=== PATIENT | female | born 1955 | race Caucasian/White ===

== ENCOUNTER 2017-08-17 11:22 | Emergency (ER) | payer BC ==
--- NOTE | 2017-08-17 11:25 | ER Report ---
History and Physical Time Seen By MD: 11:25 Hx. of Stated Complaint: wants a skin biopsy HPI/ROS h/o melanoma left chest wall has noticed over the last 2 weeks is having redness and swelling in the middle of her previous melanoma incision I'm is here from [place] is currently on vacation through December her traveling all of the [facility] states she called for clinic appointment today was told to come to the emergency room unfortunately in the emergency room we do not do biopsies of wounds explain this to patient she was aggravated about this news I am changed her focus and wanting an IV for her dry skin states he's had some broken skin at the end of her fingers since being [place] altitude explained that this was not warranted she then decided she wanted to talk to the emergency room physician who was very nice about going to talk to the patient we will send her home with instructions to increase her oral fluid intake Remainder of the 14 system rev: Yes Allergies: Coded Allergies: tramadol (Verified Allergy, Intermediate, confusion, 08/17/17) Home Meds Active Scripts Guaifenesin (MUCINEX) 600 Mg Tablet.er, 600 MG PO BID, #10 Prov:FISH OHARA 08/17/17 Amoxicillin/Pot Clav 875-125 Mg Tab (AUGMENTIN 875-125 TABLET) 1 Each Tablet, 1 TAB PO Q12H, #14 TAB Prov:FISH OHARA 08/17/17 Reported Medications Duloxetine Hcl (CYMBALTA) 30 Mg Capsule.dr, 30 MG PO QDAY, #5 CAP 08/17/17 Biotin (Biotin) 10,000 Mcg Capsule 08/17/17 Cilostazol (CILOSTAZOL) 100 Mg Tablet, 100 MG PO 08/17/17 Clopidogrel Bisulfate (PLAVIX) 75 Mg Tablet, 1 TAB PO QDAY, TAB 08/17/17 Metoprolol Succinate (METOPROLOL SUCCINATE) 25 Mg Tab.er.24h, 1 TAB PO QDAY, TAB 08/17/17 Pantoprazole Sodium (PANTOPRAZOLE SODIUM) 20 Mg Tablet.dr, 20 MG PO QDAY, TAB.SR 08/17/17 Turmeric (TURMERIC) 1 Gm Powder, 1 GM MC 08/17/17 Pregabalin (LYRICA) 50 Mg Capsule, 50 MG PO BID, CAPSULE 08/17/17 Modafinil (MODAFINIL) 200 Mg Tablet, 200 MG PO DAILY 08/17/17 Past Medical/Surgical History melanoma left chest ,chronic pain Reviewed Nurses Notes: Yes Old Medical Records Reviewed: Yes Hx Smoking: No Exposure to Second Hand Smoke?: No Hx Substance Use Disorder: No Hx Alcohol Use: No Constitutional Vital Sign - Last 24 Hours 08/17/17 11:38 Temp 98.1 Pulse 90 Resp 16 B/P (MAP) 148/87 Pulse Ox 96 O2 Delivery Room Air Physical Exam General Appearance: [The patient is alert, has no immediate need for airway protection and no current signs of toxicity.] [ ] Eyes: Pupils equal and round no injection.sinus pain right maxillay sinus Respiratory: Chest is non tender, lungs are clear to auscultation. Cardiac: regular rate and rhythm [ ] Gastrointestinal: Abdomen is soft and non tender, no masses, bowel sounds normal. Musculoskeletal: Neck: Neck is supple and non tender. Extremities have full range of motion and are non tender. Skin: Old healed incision incision left lateral chest and noticed a red raised nodule in the middle of the incision [ ] [DIFFERENTIAL DIAGNOSIS: After history and physical exam differential diagnosis was considered for recurrent melanoma, hernia, nevus Medical Decision Making ED Course/Re-evaluation ED Course Did call Dr. Conley's office he is booked out to the the patient's x-ray traveling through this area is planning on leaving by Thursday, called the [facility] they were able to see the patient tomorrow at 3:30 a gave the patient information about the name phone number and address to the clinic let her know she needs to be there 15 minutes in advance and she would see a physician tomorrow for her biopsy. Patient adamantly wanted a liter of IV fluid while in the emergency room for her dry skin on her hands we let her know that this was not indicated after seeing me she did ask to speak with the ER physician who was kind enough to go talk to the patient as well told her to increase her oral fluid intake Re-evaluation will treat sinusitis that has been there ovre 1 month, [facility] for biopsy, no iv fluids for dry skin as this is not indicated Decision to Disposition Date: Aug 17, 2017 Decision to Disposition Time: 11:45 Depart Departure Latest Vital Signs Vital Signs Date Time Temp Pulse Resp B/P (MAP) Pulse Ox O2 Delivery O2 Flow Rate FiO2 7/2/18 11:38 98.1 90 16 148/87 96 Room Air Impression: Primary Impression: Melanoma Additional Impressions: Nodule in muscle Sinusitis Condition: Condition Unchanged Disposition: HOME OR SELF-CARE Referrals: TOLU PONCE MD New Scripts Guaifenesin (MUCINEX) 600 Mg Tablet.er 600 MG PO BID, #10 Prov: FISH OHARA 08/17/17 Amoxicillin/Pot Clav 875-125 Mg Tab (AUGMENTIN 875-125 TABLET) 1 Each Tablet 1 TAB PO Q12H, #14 TAB Prov: FISH OHARA 08/17/17 Patient Instructions: Itchy Skin (ED), Sinusitis (ED) Additional Instructions: See this [facility] as instructed tomorrow at 3 30 units been given the address and contact information for the clinic Problem Qualifiers FISH OHARA Aug 17, 2017 11:25
[2017-08-17 11:38] VITALS: BP 148/87
[2017-08-17] MEDS ORDERED: BIOT10005 (11:54)
[2017-08-17] MEDS ORDERED: PREG50CA48 PO (11:54)
[2017-08-17] MEDS ORDERED: METO25TA23 PO (11:54)
[2017-08-17] MEDS ORDERED: CILO100T25 PO (11:54)
[2017-08-17] MEDS ORDERED: CLOP75TA43 PO (11:54)
[2017-08-17] MEDS ORDERED: DULO30CA35 PO (11:54)
[2017-08-17] MEDS ORDERED: PANT20TA27 PO (11:54)
[2017-08-17] MEDS ORDERED: MODA200T6 PO (11:54)
[2017-08-17] MEDS ORDERED: TURM1POW2 MC (11:54)
[2017-08-17] MEDS ORDERED: GUAI600T57 PO (12:09)
[2017-08-17] MEDS ORDERED: AMOX-559 PO (12:09)
== END 2017-08-17 12:30 | disposition home or self-care (01) ==
LOC: ER 11:37
DX: C43.9 Malignant melanoma of skin, unspecified (principal); J32.9 Chronic sinusitis, unspecified
CPT/HCPCS: 99281

== ENCOUNTER 2017-08-22 05:18 | Emergency (ER) | payer BC ==
[~2017-08-22 05:18] MED LIST: AMOX-559 PO; BIOT10005; CILO100T25 PO; CLOP75TA43 PO; DULO30CA35 PO; GUAI600T57 PO; METO25TA23 PO; MODA200T6 PO; PANT20TA27 PO; PREG50CA48 PO; TURM1POW2 MC
--- NOTE | 2017-08-22 05:22 | ER Report ---
History and Physical Time Seen By MD: 05:22 HPI/ROS CHIEF COMPLAINT: Left abdominal wall bleeding at site of biopsy HISTORY OF PRESENT ILLNESS: Patient is a 62-year-old female here with complaints of bleeding at the site of a biopsy where she previously had a melanoma scar. Patient reports that she started bleeding overnight and placed a towel and out for a makeshift pressure dressing. Patient reportedly bled through her towel prompting evaluation. Patient is well appearing at time of evaluation, hemodynamically stable in no acute distress. REVIEW OF SYSTEMS: Constitutional: No fever, no chills. Eyes: No discharge. ENT: No sore throat. Cardiovascular: No chest pain, no palpitations. Respiratory: No cough, no shortness of breath. Gastrointestinal: No abdominal pain, no vomiting. Genitourinary: No hematuria. Musculoskeletal: No back pain. Skin: + 0.5 cm puncture biopsy site upper abdomen, lower chest Neurological: No headache. Allergies: Coded Allergies: tramadol (Verified Allergy, Intermediate, confusion, 08/17/17) Home Meds Reported Medications Duloxetine Hcl (CYMBALTA) 30 Mg Capsule.dr, 30 MG PO QDAY, #5 CAP 08/17/17 Biotin (Biotin) 10,000 Mcg Capsule 08/17/17 Cilostazol (CILOSTAZOL) 100 Mg Tablet, 100 MG PO 08/17/17 Clopidogrel Bisulfate (PLAVIX) 75 Mg Tablet, 1 TAB PO QDAY, TAB 08/17/17 Metoprolol Succinate (METOPROLOL SUCCINATE) 25 Mg Tab.er.24h, 1 TAB PO QDAY, TAB 08/17/17 Pantoprazole Sodium (PANTOPRAZOLE SODIUM) 20 Mg Tablet.dr, 20 MG PO QDAY, TAB.SR 08/17/17 Turmeric (TURMERIC) 1 Gm Powder, 1 GM MC 08/17/17 Pregabalin (LYRICA) 50 Mg Capsule, 50 MG PO BID, CAPSULE 08/17/17 Modafinil (MODAFINIL) 200 Mg Tablet, 200 MG PO DAILY 08/17/17 Discontinued Scripts Guaifenesin (MUCINEX) 600 Mg Tablet.er, 600 MG PO BID, #10 Prov:FISH OHARA [employer] 08/17/17 Amoxicillin/Pot Clav 875-125 Mg Tab (AUGMENTIN 875-125 TABLET) 1 Each Tablet, 1 TAB PO Q12H, #14 TAB Prov:FISH OHARA [employer] 08/17/17 Hx Smoking: No Exposure to Second Hand Smoke?: No Hx Substance Use Disorder: No Hx Alcohol Use: No Constitutional Vital Sign - Last 24 Hours 08/22/17 08/22/17 08/22/17 08/22/17 05:27 05:30 05:33 06:00 Temp 98.7 Pulse 76 ??? Resp 20 B/P (MAP) 132/93 132/82 (99) 115/70 (85) Pulse Ox 94 O2 Delivery Room Air Physical Exam General Appearance: The patient is alert, has no immediate need for airway protection and no signs of toxicity. NAD Eyes: Pupils equal and round no pallor or injection. ENT, Mouth: Mucous membranes are moist. Respiratory: There are no retractions, lungs are clear to auscultation. Cardiovascular: Regular rate and rhythm. Gastrointestinal: Abdomen is soft and non tender, no masses, bowel sounds normal. Neurological: No focal deficits Skin: + 0.5 cm puncture wound with active bleeding of upper abdomen Musculoskeletal: Neck is supple non tender. Extremities are nontender, nonswollen and have full range of motion. DIFFERENTIAL DIAGNOSIS: After history and physical exam differential diagnosis was considered for post biopsy bleeding, trauma, bleeding disorder Medical Decision Making ED Course/Re-evaluation ED Course Patient is a 62-year-old female here with complaints of bleeding from a postbiopsy site. Patient attempted to make a makeshift gauze dressing at home however she bled through the dressing prompting evaluation. Site was dressed with TXA which caused hemostasis and the site was wrapped with Coban for pressure. Patient was reportedly on Plavix. Hemostasis was achieved. Patient was given gauze in case bleeding recurred. Decision to Disposition Date: Aug 22, 2017 Decision to Disposition Time: 06:34 Depart Departure Latest Vital Signs Vital Signs Date Time Temp Pulse Resp B/P (MAP) Pulse Ox O2 Delivery O2 Flow Rate FiO2 08/22/17 06:00 115/70 (85) 08/22/17 05:33 ??? 08/22/17 05:27 98.7 20 94 Room Air Impression: Primary Impression: Bleeding Condition: Improved Disposition: HOME OR SELF-CARE Patient Instructions: Puncture Wound (ED) Additional Instructions: If bleeding recurs, please apply direct pressure to the site. Please follow-up with your regularly scheduled appointments TABITHA FOWLER DO Aug 22, 2017 05:22
[2017-08-22] MEDS ORDERED: TRANEXAMIC AC 1000 MG/10ML SDV ONE (05:35)
[2017-08-22 06:00] VITALS: BP 115/70
== END 2017-08-22 06:50 | disposition home or self-care (01) ==
LOC: ER 05:20
DX: L76.22 Postprocedural hemorrhage of skin and subcutaneous tissue following other procedure (principal)
CPT/HCPCS: 99282